=== PATIENT | male | born 1940 | race Caucasian/White ===

== ENCOUNTER 2024-09-01 06:13 | Inpatient (IN) ==
[2024-09-01] MEDS: Lactated Ringers 1000 ml BAG 1,000 ML IV ONE (06:52)
[2024-09-01 07:01] LABS: ABS Lymphocytes 0.5 10^3/uL (1.0-4.8); ABS Monocytes 0.4 10^3/uL (0.0-1.1); ABS Neutrophils 10.5 10^3/uL (1.5-7.6); Eosinophil % 0.1 %; Hematocrit 37.9 % (38-53); Hemoglobin 12.5 g/dL (13.2-16.3); Lymphocyte % 4.6 %; Mean Corpuscular Hemoglobin 29.1 pg (27-33); Mean Corpuscular Hgb Conc 33.1 g/dL (31-36); Mean Corpuscular Volume 87.9 fL (80-97); Mean Platelet Volume 8.2 fL (7.5-11.2); Platelet Count 186 10^3/uL (150-450); Red Blood Count 4.31 10^6/uL (4.06-5.63); Red Cell Distribution Width 17.4 % (12-17); White Blood Count 11.5 10^3/uL (3.6-10.2)
[2024-09-01 07:11] LABS: INR 1.18 (0.85-1.14)
[2024-09-01 07:42] LABS: Albumin 3.4 g/dL (3.2-5.2); Albumin/Globulin Ratio 0.9 (1-3); Calcium 8.5 mg/dL (8.6-10.3); Creatinine, Serum 1.18 mg/dL (0.67-1.17); Globulin 3.6 g/dL (2-4); Magnesium 1.8 mg/dL (1.9-2.7); Total Bilirubin 0.6 mg/dL (0.2-1.0); eGFR CKD-EPI 60.8 (>60)
[2024-09-01 07:56] LABS: TSH Ultra Thyroid Stim Horm 0.99 mcIU/mL (0.34-5.60)
[2024-09-01 08:02] LABS: Urine Appearance Clear; Urine Bilirubin Negative (Negative); Urine Blood Negative (Negative); Urine Color Light-Yellow; Urine Glucose Negative (Negative); Urine Ketones Negative (Negative); Urine Nitrite Negative (Negative); Urine Protein Trace (Negative); Urine Specific Gravity 1.013 (1.002-1.030); Urine Urobilinogen Negative (Negative)
[2024-09-01 08:25] LABS: High Sensitivity Troponin 1 Hr 468 pg/mL (<20)
[2024-09-01] MEDS: Iodixanol 320 (CONTRAST) 100 ML SDV IV ONE (08:38)
[2024-09-01] MEDS ORDERED: Heparin DRIP 25,000 UNITS BAG 25,000 UNITS/250 ML BAG IV ONE (09:24)
[2024-09-01] MEDS ORDERED: Magnesium Sulfate 2 gm BAG 2 GM/50 ML BAG ONE (09:24)
[2024-09-01] MEDS ORDERED: Heparin 5000 UNITS/ML 1 mL VIAL ONE (09:24)
[2024-09-01] MEDS: Heparin 5000 UNITS/ML 1 mL VIAL IV PRN (09:37)
[2024-09-01] MEDS: Heparin DRIP 25,000 UNITS BAG 25,000 UNITS/250 ML BAG IV SCH (09:42)
[2024-09-01] MEDS: Magnesium Sulfate 2 gm BAG 2 GM/50 ML BAG IVPB ONE (09:44)
[2024-09-01 09:47] LABS: ABS Lymphocytes 0.6 10^3/uL (1.0-4.8); ABS Monocytes 0.4 10^3/uL (0.0-1.1); ABS Neutrophils 12.2 10^3/uL (1.5-7.6); ABS Nucleated RBC 0.01 10^3/ul; Eosinophil % 0.1 %; Hematocrit 34.9 % (38-53); Hemoglobin 11.3 g/dL (13.2-16.3); Lymphocyte % 4.2 %; Mean Corpuscular Hemoglobin 28.2 pg (27-33); Mean Corpuscular Hgb Conc 32.4 g/dL (31-36); Mean Platelet Volume 8.1 fL (7.5-11.2); Nucleated Red Blood Cells % 0.1 %/100WBC (0.0-0.8); Platelet Count 175 10^3/uL (150-450); Red Blood Count 4.01 10^6/uL (4.06-5.63); Red Cell Distribution Width 17.3 % (12-17); White Blood Count 13.1 10^3/uL (3.6-10.2)
[2024-09-01] MEDS: Metoprolol Tartrate 5 mg VIAL 5 ml VIAL (1 mg/ml) IV ONE ×2 (10:28→10:42)
[2024-09-01 10:36] LABS: Creatinine, Serum 1.14 mg/dL (0.67-1.17); eGFR CKD-EPI 63.4 (>60)
[2024-09-01] MEDS ORDERED: Al Hydrox/Mg Hydrox/Simet LIQ 30 ML UDC PO PRN (11:49)
[2024-09-01] MEDS ORDERED: Polyethylene Glycol 3350 17 GM PACKET PO PRN (11:49)
[2024-09-01] MEDS ORDERED: Sulfur Hexaflouride MICROSPHR 25 MG VIAL IV PRN (12:19)
[2024-09-01 12:49] LABS: C Reactive Protein 54.76 mg/L (<8.01)
[2024-09-01] MEDS: methylPREDNISolone SOD SUCC 40 mg/ml 1 ml VIAL IV SCH (14:16)
[2024-09-01] MEDS: Albuterol/Ipratropium NEB.SOL (2.5/0.5 MG) 3 ML NEB.SOLN INH SCH (14:17)
[2024-09-01] MEDS: cefTRIAXone 1 gm/50 mL D5W 1 GM/50 ML BAG IV SCH (14:18)
[2024-09-01] MEDS: Digoxin IV 0.5 MG/2 ML AMP (0.25 MG/ML) IV SLOW PU ONE (14:33)
[2024-09-01] MEDS: Azithromycin 500 mg/250 ml NS 500 MG/250 ML BAG IVPB SCH (16:45)
[2024-09-01] MEDS: NS 0.9% 1000 ml BAG 1,000 ML IV SCH (17:51)
[2024-09-02 06:29] LABS: ABS Lymphocytes 0.2 10^3/uL (1.0-4.8); ABS Monocytes 0.3 10^3/uL (0.0-1.1); ABS Neutrophils 11.1 10^3/uL (1.5-7.6); ABS Nucleated RBC 0.01 10^3/ul; Hematocrit 37.3 % (38-53); Hemoglobin 12.3 g/dL (13.2-16.3); Mean Corpuscular Hemoglobin 28.7 pg (27-33); Mean Platelet Volume 8.7 fL (7.5-11.2); Nucleated Red Blood Cells % 0.1 %/100WBC (0.0-0.8); Platelet Count 129 10^3/uL (150-450); Red Blood Count 4.29 10^6/uL (4.06-5.63); Red Cell Distribution Width 17.7 % (12-17); White Blood Count 11.7 10^3/uL (3.6-10.2)
[2024-09-02 06:47] LABS: Calcium 8.3 mg/dL (8.6-10.3); Creatinine, Serum 1.06 mg/dL (0.67-1.17); Potassium 5.2 mmol/L (3.5-5.0); eGFR CKD-EPI 69.2 (>60)
[2024-09-02] MEDS: Enoxaparin 60 MG/0.6 ML SYR SUBCUT SCH (08:42)
[2024-09-02] MEDS: SODIUM ZIRCONIUM CYCLOSILICATE 5 GM PACKET PO ONE (11:34)
[2024-09-02] MEDS ORDERED: Lorazepam PYXIS KEY PRN (11:39)
[2024-09-02] MEDS ORDERED: LORazepam 2 mg VIAL 1 ml IV PUSH PRN (11:39)
[2024-09-02] MEDS: Empagliflozin 25 MG TAB PO SCH (15:41)
[2024-09-03] MEDS: Albuterol/Ipratropium NEB.SOL (2.5/0.5 MG) 3 ML NEB.SOLN INH PRN (03:36)
[2024-09-03 04:28] LABS: Hematocrit 31.2 % (38-53); Hemoglobin 10.8 g/dL (13.2-16.3); Mean Corpuscular Hemoglobin 29.4 pg (27-33); Mean Corpuscular Hgb Conc 34.6 g/dL (31-36); Mean Platelet Volume 9.9 fL (7.5-11.2); Platelet Count 59 10^3/uL (150-450); Red Blood Count 3.68 10^6/uL (4.06-5.63); Red Cell Distribution Width 17.3 % (12-17); White Blood Count 6.8 10^3/uL (3.6-10.2)
[2024-09-03 06:19] LABS: Calcium 7.7 mg/dL (8.6-10.3); Creatinine, Serum 1.17 mg/dL (0.67-1.17); Potassium 3.9 mmol/L (3.5-5.0); eGFR CKD-EPI 61.5 (>60)
[2024-09-03 06:35] LABS: C Reactive Protein 142.83 mg/L (<8.01); Magnesium 1.9 mg/dL (1.9-2.7)
[2024-09-03] MEDS: Aspirin EC 81 mg TAB.EC (enteric coated) PO SCH (10:20)
[2024-09-03] MEDS: NS 0.9% 1000 ml BAG 1,000 ML IV SCH (12:21)
[2024-09-03 13:03] LABS: RBC Parasite Smear No Parasites Seen (No Parasite)
[2024-09-04 06:26] LABS: Hematocrit 28.5 % (38-53); Hemoglobin 9.6 g/dL (13.2-16.3); Mean Corpuscular Hemoglobin 29.3 pg (27-33); Mean Corpuscular Hgb Conc 33.9 g/dL (31-36); Mean Corpuscular Volume 86.5 fL (80-97); Red Blood Count 3.29 10^6/uL (4.06-5.63); Red Cell Distribution Width 17.9 % (12-17); White Blood Count 5.9 10^3/uL (3.6-10.2)
[2024-09-04 07:08] LABS: Calcium 7.6 mg/dL (8.6-10.3); Creatinine, Serum 1.84 mg/dL (0.67-1.17); eGFR CKD-EPI 35.7 (>60)
[2024-09-04 08:05] LABS: ABS Lymphocytes 0.2 10^3/uL (1.0-4.8); ABS Monocytes 0.1 10^3/uL (0.0-1.1); ABS Neutrophils 5.5 10^3/uL (1.5-7.6); ABS Nucleated RBC 0.07 10^3/ul; Eosinophil % 0.2 %; Large Platelets Present; Mean Platelet Volume 11.2 fL (7.5-11.2); Nucleated Red Blood Cells % 1.2 %/100WBC (0.0-0.8); Platelet Count 41 10^3/uL (150-450)
[2024-09-04 08:42] LABS: Albumin 2.5 g/dL (3.2-5.2); Albumin/Globulin Ratio 0.9 (1-3); Globulin 2.8 g/dL (2-4); Total Bilirubin 1.5 mg/dL (0.2-1.0); Total Protein 5.3 g/dL (6.4-8.9)
[2024-09-04] MEDS ORDERED: Vancomycin per Pharmacy 1 EA NOTE FOLLOW UP PRN (09:48)
[2024-09-04] MEDS ORDERED: Zosyn per Pharmacy NOTE FOLLOW UP SCH (10:00)
[2024-09-04] MEDS: Piperacillin/Tazobac 3.375 BAG 3.375 GM/100 ML BAG IV ONE (10:42)
[2024-09-04] MEDS: Vancomycin 1,250 MG in NS 0.9% 250 ml 250 ML IVPB ONE (10:48)
[2024-09-04 11:05] LABS: High Sensitivity Troponin 1 Hr 560 pg/mL (<20)
[2024-09-04 11:09] LABS: Platelet Count 45 10^3/ul (150-450)
[2024-09-04] MEDS: Pantoprazole VIAL 40 MG VIAL IV SCH (11:11)
[2024-09-04] MEDS: NS 0.9% 500 ml BAG 500 ML IV ONE (11:21)
[2024-09-04 11:40] LABS: INR 4.39 (0.85-1.14)
[2024-09-04 11:41] LABS: Activated Partial Thrombo Time 46.9 seconds (26.0-38.0)
[2024-09-04 11:56] LABS: Schistocytes ABSENT
[2024-09-04] MEDS: Argatroban 250 MG in NS 0.9% 250 ml 247.5 ML IV SCH (13:38)
[2024-09-04 13:57] LABS: Hematocrit 27.8 % (38-53); Hemoglobin 9.4 g/dL (13.2-16.3); Mean Corpuscular Hemoglobin 29.2 pg (27-33); Mean Corpuscular Hgb Conc 33.6 g/dL (31-36); Mean Corpuscular Volume 86.7 fL (80-97); Mean Platelet Volume 11.2 fL (7.5-11.2); Platelet Count 44 10^3/uL (150-450); Red Blood Count 3.21 10^6/uL (4.06-5.63); Red Cell Distribution Width 17.7 % (12-17); White Blood Count 7.3 10^3/uL (3.6-10.2)
[2024-09-04 14:40] LABS: ABS Eosinophils 0.1 10^3/uL (0.0-0.5); ABS Lymphocytes 0.4 10^3/uL (1.0-4.8); ABS Monocytes 0.2 10^3/uL (0.0-1.1); ABS Neutrophils 6.7 10^3/uL (1.5-7.6); ABS Nucleated RBC 0.09 10^3/ul; Eosinophil % 1.6 %; Lymphocyte % 4.8 %; Nucleated Red Blood Cells % 1.2 %/100WBC (0.0-0.8)
[2024-09-04 15:08] LABS: Calcium 6.9 mg/dL (8.6-10.3); Creatinine, Serum 2.18 mg/dL (0.67-1.17); Potassium 4.1 mmol/L (3.5-5.0); eGFR CKD-EPI 29.1 (>60)
[2024-09-04 15:29] LABS: Urine Appearance Turbid; Urine Bilirubin Negative (Negative); Urine Blood 3+ (Negative); Urine Color Yellow; Urine Glucose 2+ (>=150 mg/dL) (Negative); Urine Ketones Negative (Negative); Urine Nitrite Negative (Negative); Urine Protein 2+ (>=100 mg/dL) (Negative); Urine Specific Gravity 1.015 (1.002-1.030); Urine Urobilinogen Negative (Negative)
[2024-09-04 15:43] LABS: Urine Bacteria Absent /HPF (Absent); Urine Red Blood Cell 3+(>10/hpf) /HPF (0-Trace); Urine White Blood Cell Trace(0-5/hpf) /HPF (0-Trace)
[2024-09-04] MEDS: Phytonadione Oral Solution 5 MG/25 ML UDC PO SCH (15:45)
[2024-09-04] MEDS: ZOSYN 3.375 GM Q8H per EXTENDED INFUSION IV SCH (15:45)
[2024-09-04 15:51] LABS: Albumin 2.4 g/dL (3.2-5.2); Albumin/Globulin Ratio 0.9 (1-3); Direct Bilirubin 1.1 mg/dL (0.03-0.18); Globulin 2.8 g/dL (2-4); Indirect Bilirubin 0.6 mg/dL (0.3-1.0); Total Bilirubin 1.7 mg/dL (0.2-1.0); Total Protein 5.2 g/dL (6.4-8.9)
[2024-09-04] MEDS: Haloperidol 5 mg/ml SDV IV/IM 5 MG/ML AMP IV SLOW PU PRN (17:30)
[2024-09-04] MEDS: Sulfamethox/Trimethoprim DS TAB 800/160 mg PO SCH (17:35)
[2024-09-04] MEDS: Haloperidol 5 mg/ml SDV IV/IM 5 MG/ML AMP ONE (18:01)
[2024-09-04] MEDS: Norepinephrine 4 MG/250mL D5W 4,000 MCG/250 ML BAG IV ONE (18:43)
[2024-09-04] MEDS: Norepinephrine 4 MG/250mL D5W 4,000 MCG/250 ML BAG IV SCH (18:43)
[2024-09-04] MEDS: Dextrose 50% Syringe 50 ml 25 GM/50 ML SYRINGE IV PUSH PRN (19:15)
[2024-09-04 20:51] LABS: PCO2 Arterial 26 mmHg (35-45); PO2 Arterial 183 mmHg (80-100)
[2024-09-04] MEDS: Dextrose 50% Syringe 50 ml 25 GM/50 ML SYRINGE ONE (21:28)
[2024-09-04 21:30] LABS: Albumin 2.2 g/dL (3.2-5.2); Albumin/Globulin Ratio 0.8 (1-3); Calcium 6.5 mg/dL (8.6-10.3); Creatinine, Serum 3.04 mg/dL (0.67-1.17); Globulin 2.6 g/dL (2-4); Potassium 4.4 mmol/L (3.5-5.0); Total Bilirubin 1.6 mg/dL (0.2-1.0); Total Protein 4.8 g/dL (6.4-8.9); eGFR CKD-EPI 19.5 (>60)
[2024-09-04] MEDS ORDERED: Ketamine HCL 50 mg/ml 10 ml VIAL (500 MG) ONE (22:46)
[2024-09-04] MEDS ORDERED: Midazolam 10 mg/10 ml VIAL 1 mg/ml 10 ml VIAL (10 mg) ONE (22:46)
[2024-09-04] MEDS ORDERED: Rocuronium 50 mg VIAL 10 mg/ml 5 ml VIAL (50 mg) ONE (22:46)
[2024-09-04] MEDS: Propofol 10 mg/ml 100 ML BTL 1,000 MG/100 ML BTL IV SCH (22:55)
[2024-09-04] MEDS: Phenylephrine 40 mcg/mL 10mL (400mcg) SYRINGE ONE (23:17)
[2024-09-04] MEDS: Succinylcholine 200 mg VIAL 20 mg/ml 10 ml VIAL (200 mg) ONE (23:17)
[2024-09-04] MEDS: Rocuronium 50 mg VIAL 10 mg/ml 5 ml VIAL (50 mg) ONE (23:17)
[2024-09-04] MEDS ORDERED: fentaNYL 100 mcg/2 ml 50 MCG/ML VIAL IV PRN (23:28)
[2024-09-04 23:32] VITALS: BP 91/55
[2024-09-05] MEDS: Acetaminophen IV 1 GM/100ML 1,000 MG/100 ML BAG IV PRN (00:49)
[2024-09-05] MEDS: fentaNYL INFUSION 50 mcg/mL VL 2,500 MCG/50 ML VIAL IV SCH (01:32)
[2024-09-05] MEDS: Vasopressin 100 UNITS in D5W 250 ml BAG 245 ML IV SCH (02:05)
[2024-09-05] MEDS: Amiodarone 150 mg IVPREMIX 150 MG/100 ML BAG IV ONE ×2 (02:18→04:07)
[2024-09-05 02:57] LABS: Resp Rate 16
[2024-09-05 03:00] LABS: PCO2 Arterial 48 mmHg (35-45); PO2 Arterial 168 mmHg (80-100)
[2024-09-05 03:01] LABS: Venous Bicarbonate HCO3 17.6 mmol/L (24-28)
[2024-09-05] MEDS: VASOPRESSIN IVPREMIX BTL 40 UNIT/100 ML BTL IV ONE (04:07)
[2024-09-05] MEDS: Chlorhexidine MOUTHWASH 0.12% 15 ML UDC TOPICAL SCH (04:08)
[2024-09-05 04:28] LABS: PCO2 Arterial 48 mmHg (35-45); PO2 Arterial 155 mmHg (80-100)
[2024-09-05 04:42] LABS: Hematocrit 26.4 % (38-53); Hemoglobin 8.8 g/dL (13.2-16.3); Mean Corpuscular Hemoglobin 28.9 pg (27-33); Mean Corpuscular Hgb Conc 33.3 g/dL (31-36); Mean Corpuscular Volume 86.9 fL (80-97); Platelet Count 46 10^3/uL (150-450); Red Blood Count 3.04 10^6/uL (4.06-5.63); Red Cell Distribution Width 18.5 % (12-17); White Blood Count 8.2 10^3/uL (3.6-10.2)
[2024-09-05 04:56] LABS: INR 11.04 (0.85-1.14)
[2024-09-05 05:11] LABS: Albumin 2.2 g/dL (3.2-5.2); Albumin/Globulin Ratio 0.8 (1-3); Calcium 6.5 mg/dL (8.6-10.3); Creatinine, Serum 3.61 mg/dL (0.67-1.17); Globulin 2.8 g/dL (2-4); Magnesium 2.6 mg/dL (1.9-2.7); Phosphorus 7.6 mg/dL (2.5-5.0); Potassium 4.8 mmol/L (3.5-5.0); Total Bilirubin 2.1 mg/dL (0.2-1.0); Vancomycin Random 12.1 mcg/mL; eGFR CKD-EPI 15.9 (>60)
[2024-09-05 05:13] LABS: ABS Eosinophils 0.1 10^3/uL (0.0-0.5); ABS Lymphocytes 0.4 10^3/uL (1.0-4.8); ABS Monocytes 0.2 10^3/uL (0.0-1.1); ABS Neutrophils 7.4 10^3/uL (1.5-7.6); Eosinophil % 1.1 %; Lymphocyte % 5.1 %; Nucleated Red Blood Cells % 1.2 %/100WBC (0.0-0.8)
[2024-09-05 05:14] LABS: Anisocytosis 1+; Burr Cells 1+; Toxic Granulation 1+
[2024-09-05 06:16] LABS: Resp Rate 20
[2024-09-05 06:18] LABS: PCO2 Arterial 48 mmHg (35-45); PO2 Arterial 126 mmHg (80-100)
[2024-09-05] MEDS: Vancomycin Random Level NOTE FOLLOW UP ONE (07:26)
[2024-09-05] MEDS: Linezolid 600 MG IVPREMIX(*) 600 MG/300 ML BAG IVPB SCH (08:58)
[2024-09-05] MEDS ORDERED: LORazepam 2 MG/ML 1 mL Syringe IV PRN ×2 (09:15→09:25)
[2024-09-05] MEDS ORDERED: Morphine 2 MG/ML SYRINGE IV PRN (09:25)
[2024-09-05] MEDS: LORazepam 2 mg VIAL 1 ml IV PUSH PRN (09:37)
[2024-09-05] MEDS: LORazepam 2 mg VIAL 1 ml ONE (09:44)
[2024-09-05] MEDS: Calcium Gluconate 2 GM in NS 0.9% 100 ml BAG 100 ML IVPB ONE (10:28)
[2024-09-06 21:49] LABS: HIT ELISA < 0.050 OD (<0.400); Heparin PF4 Antibody Interp Negative (Negative)
[2024-09-08 13:27] LABS: Anaplasma phagocytophilum Positive (Negative); B. miyamotoi PCR, B Negative (Negative); Babesia divergens/MO-1 Negative (Negative); Babesia ducani Negative (Negative); Ehrlichia chaffeensis Negative (Negative); Ehrlichia ewingii/canis Negative (Negative); Ehrlichia muris eauclairensis Negative (Negative)
== END 2024-09-05 10:09 | disposition expired | DRG 871 ==
LOC: ED 06:13 → EDHOLD 11:49 → SUATTDRO 11:49 → MEDTELE 15:10 → MED 09-03 20:21 → ICU 09-04 08:35
PROVIDERS: ADMIT Internal Medicine; ATTEND Internal Medicine